=== PATIENT | female | born 1970 | race Caucasian/White ===

== ENCOUNTER 2016-09-08 05:22 | Inpatient (IN) | payer OTHER ==
[2016-09-07 09:51] VITALS: BMI 34.8
[2016-09-08] VITALS (23 sets, daily range): BP systolic 105–142; BP diastolic 56–81; PULSE 56–88; RESP 14–18; Ht 157.5 cm; Wt 88.3 kg
[~2016-09-08] VITALS: Ht 157.5 cm; Wt 88.3 kg
--- NOTE | 2016-09-08 06:47 | HP ---
Date/Time of Note Date/Time of Note DATE: 09/08/16 TIME: 06:46 Assessment/Plan VTE Prophylaxis VTE Prophylaxis Intervention: SCD's HPI/ROS Admit Date/Time Admit Date/Time Sep 08, 2016 at 05:22 Hx of Present Illness Daysi Hernandez M.D. 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 The mass is complex and 12 cm right sided. Medical history/ROS: High Cholesterol. Last Pap Smear: 06/01/2016 Last Mammogram: 07/08/2016 G 2 P 2 Surgical history: tubal ligation. Medications: 08/09/16 atorvastatin 40 mg tablet 1 tablet by mouth DAILY Flu no, declined, Pneumococcal no, declined Last pap ,Mammo Allergies: No active allergies recorded Family Hx: HTN--Mother Social HX: non-contributary ROS: as above Colonoscopy: never Physical Examination Vitals (08/09/2016): Weight 196, Height 61, BP 120/80, BMI 37.0. General: Alert. HEENT: Pupils are equal, round, reactive to light and accommodation. Neck: Supple with no masses of lymphadenopathy. Breast: Deferred due to recent examination and responsibility of primary care physician. Chest: Clear to auscultation Heart: Normal rhythm with no murmur. Abdomen: Mildly tender, no ascites nor organomeglay. Pelvic exam: Right adneal mass, no cul-de-sac nodularity noted Rectal: confirmatory with pelvic exam. Neurological: Grossly intact Assessment: Pelvic-abdominal mass Plan: Laparoscoic USO, comtralateral salpingectomy, possible LSH/BSO, possible staging, possible cytoreduction, possible ureteral dissection. All risks and benefits of this procedure have been discussed in detail with the patient, as well as alternative treatment strategies and their implications. The patient is aware that there is some possibility of a blood transfusion and its associated risks and benefits. She wishes to proceed and gives her informed consent. Daysi Hernandez M.D. PMH/Family/Social Social History Smoking Status: Never smoker Exam/Review of Systems Vital Signs Vitals Vital Signs Date Time Temp Pulse Resp B/P Pulse Ox O2 Delivery O2 Flow Rate FiO2 09/08/16 05:48 98.1 65 18 136/62 100 Room Air Medications Medications Current Medications Cefazolin Sodium/ Dextrose 50 ml @ 100 mls/hr PRE-OP ONCE IVPB ; Start 09/08/16 at 07:00; Stop 09/08/16 at 07:29 Metronidazole 100 ml @ 100 mls/hr PRE-OP ONCE IVPB ; Start 09/08/16 at 07:00; Stop 09/08/16 at 07:59 Potassium Chloride/Dextrose/ Sod Cl (D5-NS + KCl 20 Meq) 1,000 ml @ 100 mls/hr Q10H IV ; Start 09/08/16 at 07:00; Stop 09/08/16 at 16:59 DAYSI HERNANDEZ MD Sep 08, 2016 06:46
[2016-09-08] MEDS ORDERED: CEFAZOLIN 1 GM INJ ONE (07:00)
[2016-09-08] MEDS ORDERED: CEFAZOLIN 2 GM/50 ML (PMX) 50 ML IVPB ONE (07:00)
[2016-09-08] MEDS ORDERED: D5-NS + KCL 20 MEQ 1,000 ML IV SCH (07:00)
[2016-09-08] MEDS ORDERED: metroNIDAZOLE 500 MG/NS (PMX) 100 ML IVPB ONE (07:00)
[2016-09-08] MEDS ORDERED: METHYLENE BLUE 10 MG/ML VIAL ONE (07:13)
[2016-09-08] MEDS ORDERED: morphine SULFATE/PF (10 MG/10 ML) INJ ONE (07:18)
[2016-09-08] MEDS ORDERED: MIDAZOLAM 1 MG/ML 2 ML INJ ONE (07:19)
[2016-09-08] MEDS ORDERED: FENTAnyl 50 MCG/ML VIAL ONE ×2 (07:19→09:09)
[2016-09-08] MEDS ORDERED: ROCURONIUM 50 MG INJ ONE ×2 (07:20→07:22)
[2016-09-08] MEDS ORDERED: PROPOFOL 20 ML ONE (07:20)
[2016-09-08] MEDS ORDERED: LIDOCAINE 2% (SDV) 5 ML INJ ONE (07:21)
[2016-09-08] MEDS ORDERED: THROMBIN 5000 UNIT VIAL ONE (09:19)
[2016-09-08] MEDS ORDERED: ONDANSETRON 4 MG INJ ONE (09:48)
[2016-09-08] MEDS ORDERED: DEXAMETHASONE 4 MG/ML 1 ML INJ ONE (09:48)
[2016-09-08] MEDS ORDERED: KETOROLAC 30 MG INJ IV PRN (10:00)
[2016-09-08] MEDS ORDERED: DIPHENHYDRAMINE 50 MG INJ IV PRN ×2 (10:00)
[2016-09-08] MEDS ORDERED: MEPERIDINE 25 MG INJ IV PRN (10:00)
[2016-09-08] MEDS ORDERED: HYDROmorphONE (0.2 MG/ML) 10ML SYG IV PRN ×3 (10:00)
[2016-09-08] MEDS ORDERED: METOCLOPRAMIDE 10 MG INJ IV PRN (10:00)
[2016-09-08] MEDS ORDERED: NALOXONE (0.4 MG/ML) INJ IV PRN (10:00)
[2016-09-08] MEDS ORDERED: HYDROmorphONE 1 MG/ML SYG IV PRN ×2 (10:00)
[2016-09-08] MEDS ORDERED: FENTAnyl 50 MCG/ML VIAL IV PRN ×3 (10:00)
[2016-09-08] MEDS ORDERED: LABETALOL HCL 20MG INJ IV PRN (10:00)
[2016-09-08] MEDS ORDERED: ONDANSETRON 4 MG INJ IV PRN ×3 (10:00→11:30)
[2016-09-08] MEDS ORDERED: NEOSTIGMINE 3 MG/3 ML SYRINGE ONE (10:03)
[2016-09-08] MEDS ORDERED: GLYCOPYRROLATE 0.4 MG INJ ONE (10:03)
[2016-09-08] MEDS ORDERED: morphine 2 MG INJ IV PRN (11:30)
[2016-09-08] MEDS ORDERED: HYDROCODONE/APAP (5/325) TAB PO PRN (11:30)
[2016-09-08] MEDS: KETOROLAC 30 MG INJ IV SCH ×2 (12:00→18:47)
[2016-09-08] MEDS: D5-LR + KCL 20 MEQ 1,000 ML IV SCH ×2 (12:53→22:31)
--- NOTE | 2016-09-08 13:41 | OPR ---
Date/Time of Note Date/Time of Note DATE: 09/08/16 TIME: 13:41 Operative Report Free Text/Dictation 2 OPERATIVE REPORT [facility] Name: Alla Martínez Medical Date: 09/11/2016 Preoperative Diagnosis: 1- Adnexal mass 2- Pelvic pain Postoperative Diagnosis: 1- Benign ovarian neoplasm: pathology pending 2- Left ureteral stricture Procedures: 1- Laparoscopy 2- Lysis of adhesions 3- Unilateral ureteral dissection with repositioning 4- Left salpingoophorectomy 5- Right salpingectomy Surgeon: Dr. Morales Meteorological Engineer: Dr. Bowers Anesthesia: General Indications for Procedure: The patient is a 46- year old female with a 12- cm multi-cystic left adnexal mass and pain with normal markers as appropriate for the patients age with all risks considered. After all options were presented with risks and benefits she agreed to a laparoscopy with a unilateral salpingoophorectomy and staging if needed. Findings and Summary After exploration we observed some adhesions a large left adnexal mass. Name: Alla Hager Because the adnexia was adherent to the sidewall it was necessary to dissect and reposition the left ureter. The left adnexia was then removed without incident and noted to be benign on frozen section. Additionally, the right fallopian tube was removed as a precaution. Procedure: After being prepped and draped in the usual manner sponge stick was placed in the vagina for manipulation and identification of anatomy as needed. A 5 millimeter trocar was then inserted cephlad to the umbilicus due to the size of the mass without incident and the abdomen was insufflated to 15 mm Hg. Subsequently, we then placed two 5 millimeter trocars laterally under direct visualization and a 12 millimeter trocar suprapubically. At this time any pelvic adhesions were lysed with sharp dissection and a Omni or Thunderbeat in the event that no bowel were adjacent. Subsequently we explored and noted a large multicystic left adnexal mass adherent to the sidewall with some scar tissue. The left adnexae was enlarged to 12- cm and complex, with significant adhesions to the pelvic sidewall precluding mobilization and distorting the ureteral anatomy. Hence, the left round ligament was transected with a Thunderbeat and the retroperitoneum opened parallel to the infundibulo-pelvic ( IP) ligament with the Thunderbeat and Omni and the opening extended to define anatomy. The ureter was identified, and noted to be densely adherent to the pathology and somewhat distorted, hence requiring a ureteral dissection/ repositioning as a separate procedure. The ureter was dissected away and repositioned with great care using the endo-dissector as well as the Omni bluntly with the Omni also used for retroperitoneal hemostasis as needed with the ureter visualized and mobilized as appropriate. This process was carried out throughout the ureteral length in the pelvis and it peristalsed normally once repositioned. Subsequently, the IP ligament was desiccated and transected with a Thunderbeat. The adnexia with adherent peritoneum was Name: [facility] mobilized with a Omni while visualizing the ureter with the Omni used for localized hemostasis as needed with the ureter visualized. Hence the ovary and tube were fully by desiccated and transaction of the left triple pedicle with a Thunderbeat. The adnexia was placed in a 15-millimeter sac and had the liquid contents removed and the mass was then removed and was sent to pathology and confirmed to be benign. Subsequently a right salpingectomy was completed with the mesosalpinx desiccated and transected with the Thunderbeat without incident. After irrigating and assuring hemostasis the 12 millimeter trocar was removed and the fascia was closed with 0-vicryl using an endo-close devise with multiple sutures due to the enlargement. The gas was removed and the skin of all sites then closed with 4-0 Plain Gut and 3-0 Vicryl suture also used subcutaneously on the larger site. The EBL was minimal and the patient tolerated the procedure well and left the OR in good condition. Tremayne Morales M.D. TREMAYNE MORALES MD Sep 08, 2016 13:41
[2016-09-08] MEDS: CEFAZOLIN 1 GM/50 ML (PMX) 50 ML IVPB SCH ×2 (14:58→21:33)
[2016-09-09 00:16] VITALS: BP 123/66; RESP 18
[2016-09-09] MEDS: KETOROLAC 30 MG INJ IV SCH ×4 (00:29→17:57)
[2016-09-09] MEDS: CEFAZOLIN 1 GM/50 ML (PMX) 50 ML IVPB SCH ×2 (05:38→13:45)
[2016-09-09 06:30] LABS: HEMATOCRIT 27.8 % (37.0-47.0); HEMOGLOBIN 9.3 g/dl (12.0-16.0); LYMPHOCYTES # 1.2 10^3/ul (0.8-2.9); LYMPHOCYTES % 9.1 % (15.0-51.0); MEAN CORPUSCULAR HEMOGLOBIN 30.2 pg (29.0-33.0); MEAN CORPUSCULAR HGB CONC 33.4 g/dl (32.0-37.0); MEAN CORPUSCULAR VOLUME 90.3 fl (82.0-101.0); MEAN PLATELET VOLUME 7.4 fl (7.4-10.4); MONOCYTE # 0.7 10^3/ul (0.3-0.9); MONOCYTES % 5.3 % (0.0-11.0); NEUTROPHIL # 10.9 10^3/ul (1.6-7.5); NEUTROPHILS % 85.6 % (39.0-77.0); PLATELET COUNT 361 10^3/UL (140-440); RED BLOOD COUNT 3.08 10^6/ul (4.20-5.40); RED CELL DISTRIBUTION WIDTH 14.2 % (11.5-14.5); UNCORRECTED WBC 12.7 10^3/ul (4.8-10.8); WHITE BLOOD COUNT 12.7 10^3/ul (4.8-10.8)
[2016-09-09 06:38] LABS: ALBUMIN 3.5 g/dl (3.3-4.9); CONDITION 1; POTASSIUM 4.5 mmol/L (3.5-5.1)
[2016-09-09 06:40] LABS: BILIRUBIN,INDIRECT 0.2 mg/dl (0-1.1); BILIRUBIN,TOTAL 0.2 mg/dl (0.2-1.3); CREATININE 0.48 mg/dl (0.44-1.00)
[2016-09-09 06:41] LABS: ALBUMIN/GLOBULIN RATIO 1.2; CALCIUM 8.6 mg/dl (8.4-10.2); TOTAL PROTEIN 6.4 g/dl (6.1-8.1)
[2016-09-09 07:39] VITALS: BP 111/51; RESP 22
[2016-09-09] MEDS: D5-LR + KCL 20 MEQ 1,000 ML IV SCH (08:32)
[2016-09-09 15:15] LABS: BASOPHILS % 0.3 % (0.0-2.0); EOSINOPHILS % 0.1 % (0.0-7.0); HEMATOCRIT 28.3 % (37.0-47.0); HEMOGLOBIN 9.4 g/dl (12.0-16.0); LYMPHOCYTES # 2.1 10^3/ul (0.8-2.9); LYMPHOCYTES % 17.3 % (15.0-51.0); MEAN CORPUSCULAR HEMOGLOBIN 29.8 pg (29.0-33.0); MEAN CORPUSCULAR HGB CONC 33.2 g/dl (32.0-37.0); MEAN CORPUSCULAR VOLUME 89.8 fl (82.0-101.0); MEAN PLATELET VOLUME 7.3 fl (7.4-10.4); MONOCYTE # 0.9 10^3/ul (0.3-0.9); MONOCYTES % 7.4 % (0.0-11.0); NEUTROPHIL # 9.1 10^3/ul (1.6-7.5); NEUTROPHILS % 74.9 % (39.0-77.0); PLATELET COUNT 354 10^3/UL (140-440); RED BLOOD COUNT 3.16 10^6/ul (4.20-5.40); RED CELL DISTRIBUTION WIDTH 14.5 % (11.5-14.5); UNCORRECTED WBC 12.2 10^3/ul (4.8-10.8); WHITE BLOOD COUNT 12.2 10^3/ul (4.8-10.8)
[2016-09-09 15:22] LABS: CONDITION 1
[2016-09-09 15:25] LABS: CREATININE 0.54 mg/dl (0.44-1.00)
[2016-09-09 15:26] LABS: CALCIUM 9.1 mg/dl (8.4-10.2)
--- NOTE | 2016-09-09 18:16 | PN ---
Date/Time of Note Date/Time of Note DATE: 09/09/16 TIME: 18:14 Assessment/Plan VTE Prophylaxis VTE Prophylaxis Intervention: SCD's Lines/Catheters IV [facility]ter [facility] (from [facility]): Peripheral IV Urinary Cath still in place: Yes Assessment/Plan Chief Complaint/Hosp Course pelvic mass Problems: Assessment/Plan A- doing well P discharge Subjective 24 Hr Interval Summary Free Text/Dictation S- + flatus and boy diet. O - Resp clear CVS- NSR Abd- soft NT Ext NT no edema A- doing well P discharge Exam/Review of Systems Vital Signs Vitals Vital Signs Date Time Temp Pulse Resp B/P Pulse Ox O2 Delivery O2 Flow Rate FiO2 09/09/16 10:41 Nasal Cannula 2.0 09/09/16 07:39 98.2 74 22 111/51 95 Intake and Output 09/08/16 09/08/16 09/09/16 15:00 23:00 07:00 Intake Total 1450 ml 2590 ml 1500 ml Output Total 300 ml 700 ml 950 ml Balance 1150 ml 1890 ml 550 ml Results Result Diagram: 09/09/16 1445 09/09/16 1445 Results 24 hrs Laboratory Tests Test 09/09/16 05:04 09/09/16 14:45 Alanine Aminotransferase (ALT/SGPT) 24 Albumin 3.5 Albumin/Globulin Ratio 1.20 Alkaline Phosphatase 51 Anion Gap 17 H 15 Aspartate Amino Transf (AST/SGOT) 22 Basophils # 0.0 0.0 Basophils % 0.0 0.3 Blood Morphology Comment Blood Urea Nitrogen 8 10 Calcium Level 8.6 9.1 Carbon Dioxide Level 28 31 Chloride Level 104 105 Creatinine 0.48 0.54 Direct Bilirubin 0.00 Eosinophils # 0.0 0.0 Eosinophils % 0.0 0.1 Globulin 2.90 Glucose Level 123 95 Hematocrit 27.8 L 28.3 L Hemoglobin 9.3 L 9.4 L Indirect Bilirubin 0.2 Lymphocytes # 1.2 2.1 Lymphocytes % 9.1 L 17.3 Mean Corpuscular Hemoglobin 30.2 29.8 Mean Corpuscular Hemoglobin Concent 33.4 33.2 Mean Corpuscular Volume 90.3 89.8 Mean Platelet Volume 7.4 7.3 L Monocytes # 0.7 0.9 Monocytes % 5.3 7.4 Neutrophils # 10.9 H 9.1 H Neutrophils % 85.6 H 74.9 Nucleated Red Blood Cells # 0.0 0.0 Nucleated Red Blood Cells % 0.0 0.0 Platelet Count 361 354 Potassium Level 4.5 4.0 Red Blood Count 3.08 L 3.16 L Red Cell Distribution Width 14.2 14.5 Sodium Level 144 147 H Total Bilirubin 0.2 Total Protein 6.4 White Blood Count 12.7 H 12.2 H Medications Medications Current Medications Potassium Cl/ Dextrose/Lact Ringer's (D5-Lr + KCl 20 Meq) 1,000 ml @ 20 mls/hr Q24H IV Last administered on 09/09/16 08:32; Admin Dose 100 MLS/HR; Start at 11:30 Ondansetron HCl 4 mg 4 mg Q6H PRN IV NAUSEA AND/OR VOMITING; Start 09/08/16 at 11:30 Cefazolin Sodium (Ancef 1 Gm/50 ml (Pmx)) 50 ml @ 100 mls/hr Q8 IVPB Last administered on 09/09/16 13:45; Admin Dose 100 MLS/HR; Start 09/08/16 at 14:00 Acetaminophen/ Hydrocodone Bitart (Deville (5/325)) 1 tab Q4H PRN PO PAIN; Start 09/08/16 at 11:30 DAYSI HERNANDEZ MD Sep 09, 2016 18:16
[2016-09-09] MEDS ORDERED: SOD FERRIC GLUC COMPLX 125 MG in SOD CHLORIDE 0.9% 100 ML IVPB ONE (18:30)
[2016-09-09 19:00] VITALS: BP 141/71; RESP 18
== END 2016-09-09 21:50 | disposition home or self-care (01) | DRG 743 ==
LOC: REC 05:22 → EDSTATUS 07:30 → MS1 11:36
PROC: 0UT74ZZ Resection of Bilateral Fallopian Tubes, Percutaneous Endoscopic Approach (ICD-10-PCS; 2016-09-08)
PROC: 0UN44ZZ Release Uterine Supporting Structure, Percutaneous Endoscopic Approach (ICD-10-PCS; 2016-09-08)
PROC: 0TS74ZZ Reposition Left Ureter, Percutaneous Endoscopic Approach (ICD-10-PCS; 2016-09-08)
PROC: 0UT14ZZ Resection of Left Ovary, Percutaneous Endoscopic Approach (ICD-10-PCS; principal; 2016-09-08 07:30)
DX: D27.1 Benign neoplasm of left ovary (principal); N13.5 Crossing vessel and stricture of ureter without hydronephrosis
CPT/HCPCS: 80048; 80053; 84703; 85025; 86850; 86900; 86901; 86920; 87086; 88104; 88305; J0690; J1100; J1885; J2175; J2250; J2274; J2405; J2710; J2916; J3010; J3480